=== PATIENT | female | born 1970 | race American Indian/Alaskan Native ===

== ENCOUNTER 2017-06-20 08:05 | Emergency (ER) | payer MEDICAID ==
[2017-06-20 08:16] VITALS: O2SAT 100
[2017-06-20] MEDS ORDERED: Sodium Chloride 0.9% 1,000 ML IV ONE (08:27)
[2017-06-20] MEDS ORDERED: Sodium Chloride 0.9% 1,000 ML ONE (08:38)
[2017-06-20 08:57] LABS: HCG,QUALITATIVE URINE NEGATIVE (NEGATIVE)
[2017-06-20 08:58] LABS: BASO % 0.7 % (0.0-2.0); EOS # 0.3 K/uL (0.0-0.7); EOS % 5.1 % (0.0-4.0); HEMOGLOBIN 13.1 g/dL (11.0-16.0); LYMPH # 2.1 K/uL (1.0-4.3); LYMPH % 40.3 % (20.0-40.0); MEAN CELL VOLUME 83.1 fL (81.0-99.0); MEAN CORPUSCULAR HEMOGLOBIN 28.1 pg (27.0-31.0); MEAN CORPUSCULAR HGB CONC 33.8 g/dL (33.0-37.0); MEAN PLATELET VOLUME 7.7 fL (7.2-11.7); MONO # 0.5 K/uL (0.0-0.8); MONO % 10.2 % (0.0-10.0); NEUT # 2.3 K/uL (1.8-7.0); NEUT % 43.7 % (50.0-75.0); RBC 4.65 Mil/uL (3.80-5.20); WHITE BLOOD COUNT 5.3 K/uL (4.8-10.8)
[2017-06-20 09:01] LABS: SQUAMOUS EPITHIAL 2 /hpf (0-5); URINE BILIRUBIN NEGATIVE (NEGATIVE); URINE BLOOD NEGATIVE (NEGATIVE); URINE CLARITY Clear (Clear); URINE COLOR Yellow (YELLOW); URINE GLUCOSE (UA) NORMAL (Normal); URINE LEUKOCYTE ESTERASE NEG Leu/uL (Negative); URINE PROTEIN NEGATIVE (NEGATIVE); URINE UROBILINOGEN NORMAL mg/dL (0.2-1.0)
--- NOTE | 2017-06-20 09:02 | CT ---
PROCEDURE: CT HEAD WITHOUT CONTRAST. HISTORY: R/O Bleed COMPARISON: None available. TECHNIQUE: Axial computed tomography images were obtained through the head/brain without intravenous contrast. Radiation dose: Total exam DLP = 99.93 mGy-cm. This CT exam was performed using one or more of the following dose reduction techniques: Automated exposure control, adjustment of the mA and/or kV according to patient size, and/or use of iterative reconstruction technique. FINDINGS: HEMORRHAGE: No intracranial hemorrhage. BRAIN: Normal graf-white matter differentiation and density are appreciated throughout the cerebrum and cerebellum with the brainstem appearing unremarkable as well. There is no mass effect. There is no suspicious extra-axial fluid collection and the midline brain anatomy appears diffusely unremarkable. VENTRICLES: Unremarkable. No hydrocephalus. CALVARIUM: Unremarkable. PARANASAL SINUSES: Unremarkable as visualized. No significant inflammatory changes. MASTOID AIR CELLS: Unremarkable as visualized. No inflammatory changes. OTHER FINDINGS: None. IMPRESSION: Unremarkable unenhanced CT of the Head.
[2017-06-20 09:14] LABS: ALB/GLOB RATIO 1.1 (1.0-2.1); ALT/SGPT 29 U/L (9-52); AST/SGOT 45 U/L (14-36); BLOOD UREA NITROGEN 13 mg/dL (7-17); CALCIUM 9.2 mg/dl (8.6-10.4); GFR AFRICAN-AMERICAN > 60; GFR NON-AFRICAN AMERICAN > 60
--- NOTE | 2017-06-20 09:35 | C.PDOC ---
History Of Present Illness 46-year-old female, PMHx includes Migraines, presents to the emergency department with complaints of a frontal headache that started one week ago. She describes the pain as pressure. Patient is also complaining of lower back pain for the past week, that radiates down her left leg. Patient denies numbness/ weakness, visual changes, bladder/bowel incontinence, trauma, abdominal pain, vaginal discharge/bleeding, chest pain, SOB, subjective neurological changes or URI symtpoms. No other complaints at this time. Time Seen by Provider: 06/20/17 08:18 Chief Complaint (Nursing): Back Pain History Per: Patient History/Exam Limitations: no limitations Onset/Duration Of Symptoms: Days Current Symptoms Are (Timing): Still Present Past Medical History Reviewed: Historical Data, Nursing Documentation, Vital Signs Vital Signs: Last Vital Signs Temp 98.0 F 06/20/17 10:36 Pulse 68 06/20/17 09:50 Resp 18 06/20/17 09:50 BP 108/68 06/20/17 09:50 Pulse Ox 100 06/20/17 11:30 - Medical History PMH: Anemia (secondary to fibroids which were removed) Other Surgeries: hysterectomy Family History: States: No Known Family Hx - Social History Hx Alcohol Use: No Hx Substance Use: No - Immunization History Hx Tetanus Toxoid Vaccination: No Hx Influenza Vaccination: No Hx Pneumococcal Vaccination: No Review Of Systems Except As Marked, All Systems Reviewed And Found Negative. Constitutional: Negative for: Fever, Chills Cardiovascular: Negative for: Chest Pain Gastrointestinal: Negative for: Nausea, Vomiting, Abdominal Pain Genitourinary: Negative for: Dysuria, Hematuria, Vaginal Discharge, Vaginal Bleeding Musculoskeletal: Positive for: Back Pain Neurological: Positive for: Headache. Negative for: Weakness, Numbness Physical Exam - Physical Exam Appears: Non-toxic, No Acute Distress Skin: Warm, Dry, No Rash Head: Atraumatic, Normacephalic, Tenderness (frontal sinuses) Eye(s): bilateral: Normal Inspection, PERRL, EOMI Ear(s): Bilateral: Normal Nose: Normal Oral Mucosa: Moist Lips: Normal Appearing Throat: Normal, No Erythema, No Exudate Neck: Normal, Normal ROM, Supple Chest: Symmetrical Cardiovascular: Rhythm Regular Respiratory: Normal Breath Sounds, No Accessory Muscle Use Gastrointestinal/Abdominal: Soft, No Tenderness Back: No CVA Tenderness, No Vertebral Tenderness, Paraspinal Tenderness ((+) bilateral lumbar tenderness, (+) left buttock tenderness ) Extremity: Normal ROM, No Deformity, No Swelling Neurological/Psych: Oriented x3, Normal Speech, Normal Cognition, Normal Cranial Nerves (no focal deficits), Normal Sensation Gait: Steady ED Course And Treatment - Laboratory Results Result Diagrams: 06/20/17 08:51 06/20/17 08:51 O2 Sat by Pulse Oximetry: 100 (RA) Pulse Ox Interpretation: Normal - Other Rad XR X-Ray: Viewed By Me, Read By Radiologist Interpretation: Accession No. : [id number]. Patient Name / ID : ARNAUD MANNING / [id number]. Exam Date : 06/20/2017 08:58:48 ( Approved ). Study Comment : Sex / Age : F / 46Y. Creator : Eugenio Cheng MD. Dictator : Eugenio Cheng MD. Fnp : Bag Hanger : Eugenio Cheng MD. Approver2 : Report Date : 06/20/2017 11:12:25. My Comment : . PROCEDURE: Radiographs of the Lumbar Spine. HISTORY: pain. COMPARISON: No prior. FINDINGS: BONES: Normal alignment. No listhesis. No fracture. DISC SPACES: Unremarkable. OTHER FINDINGS: Patient is unable to remove a metallic belly ring which obscures the inferior lumbar spine somewhat in the frontal view only. IMPRESSION: No definite acute fracture or spondylolisthesis appreciated. No destructive bony lesion demonstrated grossly. - CT Scan/US CT head Other Rad Studies (CT/US): Read By Radiologist, Radiology Report Reviewed CT/US Interpretation: Accession No. : [id number]. Patient Name / ID : ARNAUD MANNING / [id number]. Exam Date : 06/20/2017 08:48:38 ( Approved ). Study Comment : Sex / Age : F / 46Y. Creator : Eugenio Cheng MD. Dictator : Eugenio Cheng MD. Fnp : Bag Hanger : Eugenio Cheng MD. Approver2 : Report Date : 06/20/2017 09:00:49. My Comment : . PROCEDURE: CT HEAD WITHOUT CONTRAST. HISTORY: R/O Bleed. COMPARISON: None available. TECHNIQUE: Axial computed tomography images were obtained through the head/brain without intravenous contrast. Radiation dose: Total exam DLP = 99.93 mGy-cm. This CT exam was performed using one or more of the following dose reduction techniques: Automated exposure control, adjustment of the mA and/or kV according to patient size, and/or use of iterative reconstruction technique. FINDINGS: HEMORRHAGE: No intracranial hemorrhage. BRAIN: Normal graf-white matter differentiation and density are appreciated throughout the cerebrum and cerebellum with the brainstem appearing unremarkable as well. There is no mass effect. There is no suspicious extra- axial fluid collection and the midline brain anatomy appears diffusely unremarkable. VENTRICLES: Unremarkable. No hydrocephalus. CALVARIUM: Unremarkable. PARANASAL SINUSES: Unremarkable as visualized. No significant inflammatory changes. MASTOID AIR CELLS: Unremarkable as visualized. No inflammatory changes. OTHER FINDINGS: None. IMPRESSION: Unremarkable unenhanced CT of the Head. Progress Note: CT Head, Bloodwork, UA/U-preg and XR-Spine ordered and reviewed. Patient treated with Toradol, IVFs and Fioricet. On re-evaluation, patient is resting comfortably, is tolerating PO, and pain has improved. Patient has no neurologic deficit, photophobia, rash, fever, or nuchal rigidity. Patient was instructed to follow up with physician/clinic in 1-2 days. Disposition - Disposition Referrals: Eulalia Vang MD [Staff Provider] - Disposition: HOME/ ROUTINE Disposition Time: 10:09 Condition: STABLE Additional Instructions: Follow up with primary medical doctor in 1-3 days without fail for further evaluation. Take medications as prescribed. Return to the emergency department at any time if symptoms persist or worsen. Prescriptions: Acetaminophen/Butalbital/Caf [Fioricet] 1 tab PO TID PRN #20 tab PRN Reason: Headache Naproxen [Naprosyn] 1 tab PO BID PRN #20 tab PRN Reason: Pain Instructions: Sinus Headache (DC) Forms: [employer] (Swedish) - Clinical Impression Clinical Impression: Low back pain, Headache - Scribe Statement The provider has reviewed the documentation as recorded by the Scribe (Montrell Baum) All medical record entries made by the Scribe were at my direction and personally dictated by me. I have reviewed the chart and agree that the record accurately reflects my personal performance of the history, physical exam, medical decision making, and the department course for this patient. I have also personally directed, reviewed, and agree with the discharge instructions and disposition.
[2017-06-20 09:50] VITALS: BP 108/68; PULSE 68; RESP 18
[2017-06-20] MEDS ORDERED: Apap-Butalbital-Caffeine 325-50-40mg Tab PO STA (10:07)
[2017-06-20] MEDS ORDERED: Apap-Butalbital-Caffeine 325-50-40mg Tab ONE (10:24)
[2017-06-20 10:36] VITALS: TEMP 98
--- NOTE | 2017-06-20 11:14 | RAD ---
PROCEDURE: Radiographs of the Lumbar Spine. HISTORY: pain COMPARISON: No prior. FINDINGS: BONES: Normal alignment. No listhesis. No fracture. DISC SPACES: Unremarkable. OTHER FINDINGS: Patient is unable to remove a metallic belly ring which obscures the inferior lumbar spine somewhat in the frontal view only. IMPRESSION: No definite acute fracture or spondylolisthesis appreciated. No destructive bony lesion demonstrated grossly.
== END 2017-06-20 10:37 | disposition home or self-care (01) ==
LOC: C.ER 08:05
DX: R51 Headache (principal); M54.5 Low back pain
CPT/HCPCS: 70450; 72100; 80053; 81001; 84703; 85025; 96361; 96374; 99284; J1885; J7040

== ENCOUNTER 2018-06-14 14:59 | Emergency (ER) | payer SELFPAY ==
[2018-06-14 16:09] VITALS: BMI 31.9
[2018-06-14 16:12] VITALS: RESP 18
[2018-06-14] MEDS ORDERED: guaiFENesin 100 mg/5 ml Syrup UD PO STA (17:33)
--- NOTE | 2018-06-14 17:35 | C.PDOC ---
History Of Present Illness 47-year-old female presents to the ED for evaluation of cough, congestion and fever for the last 4 days. Patient was evaluated at [facility] two days ago. She states she was prescribed Motrin, and has not been taking any cough or cold medicine. Patient denies vomiting, diarrhea. Time Seen by Provider: 06/14/18 17:12 Chief Complaint (Nursing): ENT Problem History Per: Patient History/Exam Limitations: no limitations Onset/Duration Of Symptoms: Days (4) Current Symptoms Are (Timing): Still Present Associated Symptoms: Fever, Cough, Nasal Congestion. denies: Vomiting, Diarrhea Past Medical History Reviewed: Historical Data, Nursing Documentation, Vital Signs Vital Signs: Last Vital Signs Temp 100.0 F H 06/14/18 16:09 Pulse 94 H 06/14/18 16:09 Resp 18 06/14/18 16:09 BP 107/70 06/14/18 16:09 Pulse Ox 100 06/14/18 16:09 - Medical History PMH: Anemia (secondary to fibroids which were removed) Surgical History: No Surg Hx Family History: States: Unknown Family Hx - Social History Hx Alcohol Use: Yes Hx Substance Use: No - Immunization History Hx Tetanus Toxoid Vaccination: No Hx Influenza Vaccination: Yes (2018) Hx Pneumococcal Vaccination: Yes (2017) Review Of Systems Constitutional: Positive for: Fever ENT: Positive for: Nose Congestion Respiratory: Positive for: Cough Gastrointestinal: Negative for: Vomiting, Diarrhea Physical Exam - Physical Exam Appears: Non-toxic, No Acute Distress, Other (obese Black female ) Skin: Normal Color, Warm, Dry Head: Atraumatic, Normacephalic Eye(s): bilateral: Normal Inspection Ear(s): Bilateral: Normal Nose: Normal, No Discharge Oral Mucosa: Moist Throat: Normal, No Erythema, No Exudate Neck: Supple Chest: Symmetrical, No Deformity, No Tenderness Cardiovascular: Rhythm Regular, No Murmur Respiratory: Normal Breath Sounds, No Rales, No Rhonchi, No Wheezing, Other (dry, non-productive cough noted) Extremity: Normal ROM Neurological/Psych: Normal Speech, Normal Cognition ED Course And Treatment O2 Sat by Pulse Oximetry: 100 (on RA) Pulse Ox Interpretation: Normal Progress Note: Robitussin PO, Motrin PO and Sudafed PO given. Medical Decision Making Medical Decision Making: viral syndrome exam sig for nasal erythema/throat erythema, dry cough no sick contacts Disposition Doctor Will See Patient In The: Office Counseled Patient/Family Regarding: Studies Performed, Diagnosis - Disposition Referrals: [facility] [Outside] [facility] [Outside] [facility] [Outside] [facility] [Outside] Disposition: HOME/ ROUTINE Disposition Time: 17:34 Condition: GOOD Additional Instructions: liberal use of Dayquil/Nyquil (or equivalent) for symptomatic relief Usually 3-4x/day and 1-2x/night no work/school until afebrile for 24 hours Instructions: Viral Upper Respiratory Infection, Adult (DC) Forms: [facility] (Wolof) - Clinical Impression Clinical Impression: Viral syndrome - PA / [employer] / Resident Statement MD/DO has reviewed & agrees with the documentation as recorded. - Scribe Statement The provider has reviewed the documentation as recorded by the Scribe (Radha Arnold) Provider Attestation: All medical record entries made by the Scribe were at my direction and personally dictated by me. I have reviewed the chart and agree that the record accurately reflects my personal performance of the history, physical exam, medical decision making, and the department course for this patient. I have also personally directed, reviewed, and agree with the discharge instructions and disposition.
[2018-06-14] MEDS ORDERED: guaiFENesin 100 mg/5 ml Syrup UD ONE (17:40)
[2018-06-14 18:24] VITALS: BP 138/79; PULSE 91; TEMP 99.6
[2018-06-14 21:38] VITALS: O2SAT 100
== END 2018-06-14 18:01 | disposition home or self-care (01) ==
LOC: C.ER 14:59
DX: B34.9 Viral infection, unspecified (principal)